=== PATIENT | male | born 1975 | race Two or more races ===

== ENCOUNTER 2019-12-17 13:17 | Emergency (ER) | payer OTHER ==
[~2019-12-17] VITALS: Ht 177.8 cm; Wt 108.9 kg
[2019-12-17 13:29] VITALS: BP 171/102
--- NOTE | 2019-12-17 14:32 | NUR ---
Patient discharged to home in stable condition. Written and verbal after care instructions given. Patient verbalizes understanding of instruction.
== END 2019-12-17 14:32 | disposition home or self-care (01) ==
LOC: ER 13:22
DX: Z09 Encounter for follow-up examination after completed treatment for conditions other than malignant neoplasm (principal); Z86.19 Personal history of other infectious and parasitic diseases; I10 Essential (primary) hypertension
CPT/HCPCS: 99283; C9803; U0003